=== PATIENT | female | born 1965 | race Caucasian/White ===

== ENCOUNTER 2016-10-08 12:06 | Inpatient (IN) | payer OTHER ==
[~2016-10-08] VITALS: Ht 162.6 cm; Wt 89.8 kg
[2016-10-08 12:37] LABS: HEMOGLOBIN 14.9 gm/dl (12.3-15.3); RED BLOOD COUNT 4.93 M/UL (4.00-5.10); WHITE BLOOD COUNT 10.7 K/UL (4.5-11.0)
[2016-10-08 13:00] LABS: BUN/CREATININE RATIO 19 (0-10)
[2016-10-08] MEDS ORDERED: ADIPEX-P37.5 M1 PO (15:47)
[2016-10-09 03:23] LABS: HEMOGLOBIN 12.8 gm/dl (12.3-15.3); RED BLOOD COUNT 4.3 M/UL (4.00-5.10); WHITE BLOOD COUNT 7.3 K/UL (4.5-11.0)
[2016-10-09 04:12] LABS: BUN/CREATININE RATIO 15 (0-10)
== END 2016-10-09 16:30 | disposition home or self-care (01) | DRG 247 ==
LOC: ER1 12:06 → CCU 14:58 → ZEROF 14:58 → CCU 15:55
PROVIDERS: Student in an Organized Health Care Education/Training Program; ADMIT Internal Medicine Cardiovascular Disease
PROC: 027034Z Dilation of Coronary Artery, One Artery with Drug-eluting Intraluminal Device, Percutaneous Approach (ICD-10-PCS; principal; 2016-10-08)
PROC: 4A023N7 Measurement of Cardiac Sampling and Pressure, Left Heart, Percutaneous Approach (ICD-10-PCS; 2016-10-08)
PROC: B216YZZ Fluoroscopy of Right and Left Heart using Other Contrast (ICD-10-PCS; 2016-10-08)
DX: I21.19 ST elevation (STEMI) myocardial infarction involving other coronary artery of inferior wall (principal); I10 Essential (primary) hypertension; E78.5 Hyperlipidemia, unspecified; Z82.49 Family history of ischemic heart disease and other diseases of the circulatory system; E66.9 Obesity, unspecified; Z98.51 Tubal ligation status; Z79.899 Other long term (current) drug therapy; Z68.34 Body mass index [BMI] 34.0-34.9, adult
CPT/HCPCS: ECHO; 36415; 71010; 80048; 80053; 80061; 82550; 82553; 83874; 84484; 85025; 85027; 85610; 85730; 93005; 93306; 99285; C1725; C1769; C1874; C1887; C9600; J0461; J0583; J1644; J2250; J3010; J7030; J7040; Q9965

== ENCOUNTER → 2016-11-01 | Outpatient (CLI) | payer OTHER ==
[~2016-11-01] MED LIST: ADIPEX-P37.5 M1 PO
== END ==
LOC: CARD REHAB 13:00
DX: Z48.812 Encounter for surgical aftercare following surgery on the circulatory system (principal)